=== PATIENT | female | born 1975 | race Caucasian/White ===

== ENCOUNTER 2017-05-02 23:22 | Emergency (ER) | payer OTHER ==
[2017-05-02 23:32] VITALS: BP 128/95; PULSE 98; TEMP 98; BMI 32.4
--- NOTE | 2017-05-02 23:42 | PDOC ---
History of Present Illness - General Chief Complaint: Pain Stated Complaint: RT ARM NUMBNESS/PAIN Time Seen by Provider: 05/02/17 23:30 History Source: Patient Exam Limitations: No Limitations - History of Present Illness Initial Comments: 05/02/17 23:39 This is a 41-year-old female who comes in complaining of right arm numbness during the nighttime hours only. Patient said when she goes to sleep her arm is fine and then when she wakes up in the morning she has some numbness radiating down her arm. Patient said the numbness resolves after she wakes up during the day. Patient said that she does sleep on her side. Patient however denies any numbness in the other arm. Patient says that she has arthritis in her lower back and denies any neck pain however is complaining of some posterior shoulder discomfort in addition to the numbness down her arm. Patient denies any recent injury or trauma. Patient denies any fevers or chills or any other complaints. PAST MEDICAL HISTORY: Cerebral palsy PAST SURGICAL HISTORY: no significant history FAMILY HISTORY: no pertinant history SOCIAL HISTORY: Pt lives with family and is employed. MEDICATIONS: reviewed ALLERGIES: As per nursing note Review of Systems General: No fevers or chills, no weakness, no weight loss HEENT: No change in vision. No sore throat,. No ear pain CardioVascular: No chest pain or shortness of breath Respiratory:No cough, or wheezing. Gastrointestinal: no nausea, vomitting, diarrhea or constipation, No rectal bleeding Genitourinary: No dysuria, hematuria, or frequency Musculoskeletal: No joint or muscle pain or swelling Neurologic: No headache, vertigo, dizziness or loss of consciousness Psychiatric: nor depression Skin: No rashes or easy bruising Endocrine: no increased thirst or abnormal weight change Allergic: no skin or latex allergy All other systems reviewed and normal GENERAL: The patient is awake, alert, and fully oriented, in no acute distress. HEAD: Normal with no signs of trauma. EYES: Pupils equal, round and reactive to light, extraocular movements intact, sclera anicteric, conjunctiva clear. C-SPINE: There is no tenderness on palpation of the cervical spine there is some right paraspinal discomfort and spasm. There is full range of motion of the upper extremities, sensation and motor strength are intact. Pulses are intact. EXTREMITIES: Normal range of motion, no edema. NEUROLOGICAL: Normal speech, normal gait. PSYCH: Normal mood, normal affect. SKIN: Warm, Dry, normal turgor, no rashes or lesions noted. 05/03/17 00:37 X-ray of the cervical spine shows no acute fracture or dislocation however there is a moderate amount of degenerative arthritic type changes especially in the levels of c5 and c6. Assessment and plan: This is a 41-year-old female with history of cerebral palsy who comes in complaining of right arm numbness that is only at night after she sleeps. There is a radicular component to it in patient's x-ray shows moderate amount of disc degenerative/arthritic type changes with some bone spurring and narrowing of portions of the disc space C5-C6. This most likely is the cause of her numbness during the night times hours. I gave her a dose of some prednisone and told her to take a week of anti- inflammatories and follow-up with an orthopedist. Patient was referred to Dr. Cruz orthopedist for follow-up. Past History - Past Medical History Allergies/Adverse Reactions: Allergies Allergy/AdvReac Type Severity Reaction Status Date / Time No Known Allergies Allergy Verified 05/02/17 23:25 Home Medications: Ambulatory Orders Ibuprofen [Motrin] 600 mg PO QID PRN #20 tablet 01/17/12 Meloxicam [Mobic (Nf) -] 15 mg PO DAILY 05/02/17 COPD: No Other medical history: CP - Suicide/Smoking/Psychosocial Hx Smoking Status: No Smoking History: Never smoked Have you smoked in the past 12 months: No Number of Cigarettes Smoked Daily: 0 Information on smoking cessation initiated: No Hx Alcohol Use: No Drug/Substance Use Hx: No Substance Use Type: None *Physical Exam - Vital Signs Last Vital Signs Temp Pulse Resp BP Pulse Ox 98 F 98 H 20 128/95 97 05/02/17 23:25 05/02/17 23:25 05/02/17 23:25 05/02/17 23:25 05/02/17 23:25 ED Treatment Course - RADIOLOGY Radiology Studies Ordered: Category Date Time Status SPINE-CERVICAL [RAD] Stat Radiology 05/02/17 23:37 Ordered *DC/Admit/Observation/Transfer Diagnosis at time of Disposition: Cervical radiculopathy - Discharge Dispostion Disposition: HOME Condition at time of disposition: Stable Admit: No - Referrals - Patient Instructions Additional Instructions: Take Naprosyn 2 tablets twice a day with food don't take on an empty stomach take the Naprosyn for one week. If you're not improved in one week call your primary care doctor and get an appointment to follow-up Return to the emergency department immediately with ANY new, persistent or worsening symptoms. Continue any medications as previously prescribed by your physician. You should follow up with Dr. Cruz in one week if not improved. Dr. Cruz's phone number is [phone] call his office and make an appointment for one week from now . Please make sure your doctor reviews the results of your emergency evaluation. Thank you for coming to the Emergency Department today for your care. It was a pleasure to see you today. Please note that your evaluation is INCOMPLETE until you follow-up with your doctor. - Post Discharge Activity
[2017-05-03] MEDS ORDERED: predniSONE 20 MG TABLET (UD) PO ONE (00:35)
[2017-05-03] MEDS ORDERED: predniSONE 20 MG TABLET (UD) ONE (00:45)
== END 2017-05-03 00:49 | disposition home or self-care (01) ==
LOC: FER 23:22
DX: M54.12 Radiculopathy, cervical region (principal); G80.9 Cerebral palsy, unspecified
CPT/HCPCS: 72050-TC; 99282-25

== ENCOUNTER 2020-07-18 19:30 | Emergency (ER) | payer OTHER ==
[2020-07-18 19:46] VITALS: BP 141/81; PULSE 86; TEMP 98.7; BMI 29.0
[2020-07-18] MEDS ORDERED: SODIUM CHLORIDE 1,000 ML IV SCH (20:00)
[2020-07-18 20:16] LABS: BASO % 4.5 % (0-2.0); EOS % 1.3 % (0-4.5); HEMATOCRIT 36.9 % (32.4-45.2); HEMOGLOBIN 12.6 GM/dl (10.7-15.3); MCH 30.6 pg (25.7-33.7); MCHC 34.2 g/dl (32.0-36.0); MEAN CELL VOLUME 89.7 fl (80-96); MEAN PLT VOLUME 8.7 fl (7.5-11.1); MONO % 3.6 % (3.8-10.2); NEUT % 72.6 % (42.8-82.8); PLATELET COUNT 325 K/MM3 (134-434); RBC 4.11 M/mm3 (3.60-5.2); RDW 11.7 % (11.6-15.6); WHITE BLOOD COUNT 10.1 K/mm3 (4.0-10.8)
[2020-07-18 20:21] LABS: HCG,QUALITATIVE URINE Negative
[2020-07-18 20:34] LABS: ALBUMIN 3.9 g/dl (3.4-5.0); BILIRUBIN,TOTAL 0.7 mg/dl (0.2-1); CALCIUM 8.5 mg/dl (8.5-10); CREATININE 0.8 mg/dl (0.55-1.3); TOT PROT 6.9 g/dl (6.4-8.2)
[2020-07-18 20:42] LABS: EPITHELIAL CELLS FEW /hpf
== END 2020-07-18 22:54 | disposition home or self-care (01) ==
LOC: FER 19:30
DX: R10.31 Right lower quadrant pain (principal)
CPT/HCPCS: 36415; 74177-TC; 80053; 81003; 81015; 84703; 85025; 87077; 87086; 99285-25; Q9967

== ENCOUNTER 2020-11-03 06:22 | Day surgery (SDC) | payer OTHER ==
[2020-10-27 14:45] VITALS: BMI 28.1
[2020-11-03] MEDS ORDERED: LIDOCAINE HCL 2% (20ML MULTI-DOSE VIAL) ONE (07:04)
[2020-11-03] MEDS ORDERED: PROPOFOL 20 ML ONE (07:06)
[2020-11-03] MEDS ORDERED: MIDAZOLAM HCL 2 MG/2 ML SINGLE DOSE VIAL ONE (07:06)
[2020-11-03] MEDS ORDERED: LIDOCAINE HCL 2% (50ML VIAL) INF ONE (08:32)
[2020-11-03] MEDS ORDERED: ONDANSETRON 4 MG/2 ML VIAL ONE (08:36)
[2020-11-03] MEDS ORDERED: LIDOCAINE HCL/PF 2% SDV 5ML VIAL ONE (08:36)
[2020-11-03] MEDS ORDERED: DEXAMETHASONE SOD PHOSPHATE 4 MG/1 ML VIAL ONE (08:36)
[2020-11-03] MEDS ORDERED: KETOROLAC TROMETHAMINE 30 MG/1 ML VIAL ONE (08:36)
[2020-11-03 09:20] VITALS: TEMP 97.9
[2020-11-03 09:54] VITALS: BP 120/81; PULSE 81
== END 2020-11-03 09:54 | disposition home or self-care (01) ==
LOC: FASU 06:22
PROVIDERS: ATTEND Orthopaedic Surgery Hand Surgery
PROC: 01N50ZZ Release Median Nerve, Open Approach (ICD-10-PCS; principal; 2020-11-03 08:43)
DX: G56.01 Carpal tunnel syndrome, right upper limb (principal)
CPT/HCPCS: 84703

== ENCOUNTER 2021-01-06 15:01 | Emergency (ER) | payer OTHER ==
[2021-01-06 15:23] VITALS: BMI 30.1
[2021-01-06] MEDS ORDERED: ACETAMINOPHEN 325 MG TABLET (FP) PO ONE (15:25)
[2021-01-06] MEDS ORDERED: ACETAMINOPHEN 325 MG TABLET (FP) ONE (15:29)
[2021-01-06 17:09] VITALS: BP 118/76; PULSE 80; TEMP 98.2
== END 2021-01-06 17:18 | disposition home or self-care (01) ==
LOC: FER 15:01
DX: M25.531 Pain in right wrist (principal)
CPT/HCPCS: 73110-TC-RT-FY; 73130-TC-RT-FY; 99284-25

== ENCOUNTER 2021-04-06 12:39 | Day surgery (SDC) | payer OTHER ==
[2021-03-31 11:19] VITALS: BMI 29.7
[2021-04-06] MEDS ORDERED: PROPOFOL 20 ML ONE (13:19)
[2021-04-06] MEDS ORDERED: ONDANSETRON 4 MG/2 ML VIAL ONE (13:19)
[2021-04-06] MEDS ORDERED: KETOROLAC TROMETHAMINE 30 MG/1 ML VIAL ONE (13:19)
[2021-04-06] MEDS ORDERED: DEXAMETHASONE SOD PHOSPHATE 4 MG/1 ML VIAL ONE (13:19)
[2021-04-06] MEDS ORDERED: ceFAZolin SODIUM 1 GM VIAL ONE ×2 (13:19→15:25)
[2021-04-06] MEDS ORDERED: ROPIVACAINE HCL 0.5% 30ML VIAL ONE (14:28)
[2021-04-06] MEDS ORDERED: MIDAZOLAM HCL 2 MG/2 ML SINGLE DOSE VIAL ONE (14:28)
[2021-04-06] MEDS ORDERED: ceFAZolin SODIUM 1 GM VIAL IVPB ONE (15:25)
[2021-04-06] MEDS ORDERED: LIDOCAINE HCL 2% (50ML VIAL) NR ONE (15:27)
[2021-04-06] MEDS ORDERED: GUM MASTIC/STORAX/MSAL/ALCOHOL 1 DRP DROPSBTL MC ONE (16:41)
[2021-04-06 17:21] VITALS: TEMP 97.8
[2021-04-06 18:17] VITALS: BP 110/68; PULSE 74
== END 2021-04-06 18:05 | disposition home or self-care (01) ==
LOC: FASU 12:39
PROVIDERS: ATTEND Orthopaedic Surgery Hand Surgery
PROC: 0PBM0ZZ Excision of Right Carpal, Open Approach (ICD-10-PCS; 2021-04-06)
PROC: 0PTM0ZZ Resection of Right Carpal, Open Approach (ICD-10-PCS; principal; 2021-04-06 14:30)
DX: M19.031 Primary osteoarthritis, right wrist (principal)
CPT/HCPCS: 73110-TC-RT-FY; 73130-TC-RT-FY; 84703; 88304-TC; 88311-TC; 94760

== ENCOUNTER 2022-09-14 21:28 | Emergency (ER) | payer OTHER ==
[2022-09-14 21:36] VITALS: BP 143/82; PULSE 83; RESP 18; TEMP 98.1; BMI 29.7
[2022-09-14] MEDS ORDERED: ONDANSETRON *ODT* 4 MG TABLET SL ONE (23:09)
[2022-09-14] MEDS ORDERED: ONDANSETRON *ODT* 4 MG TABLET ONE (23:10)
== END 2022-09-14 23:17 | disposition home or self-care (01) ==
LOC: FER 21:28
DX: S52.501A Unspecified fracture of the lower end of right radius, initial encounter for closed fracture (principal); W01.0XXA Fall on same level from slipping, tripping and stumbling without subsequent striking against object, initial encounter; Y92.018 Other place in single-family (private) house as the place of occurrence of the external cause
CPT/HCPCS: 73110-TC-RT-FY; 99283-25; Q0162

== ENCOUNTER 2023-03-22 19:19 | Emergency (ER) | payer OTHER ==
[2023-03-22 19:39] VITALS: BP 129/97; PULSE 89; RESP 18; TEMP 97.5; BMI 34.9
[2023-03-22] MEDS ORDERED: KETOROLAC TROMETHAMINE 60 MG/2 ML VIAL IM ONE (20:18)
[2023-03-22] MEDS ORDERED: KETOROLAC TROMETHAMINE 60 MG/2 ML VIAL ONE (20:20)
[2023-03-22] MEDS ORDERED: BACLOFEN 10 MG TABLET (FP) PO ONE (20:44)
[2023-03-22] MEDS ORDERED: BACLOFEN 10 MG TABLET (FP) ONE (20:46)
== END 2023-03-22 21:29 | disposition home or self-care (01) ==
LOC: FER 19:19
PROC: 3E0233Z Introduction of Anti-inflammatory into Muscle, Percutaneous Approach (ICD-10-PCS; principal; 2023-03-22)
DX: M25.551 Pain in right hip (principal); R25.2 Cramp and spasm
CPT/HCPCS: 73502-TC-RT-FY; 99284-25; J0475